=== PATIENT | male | born 1940 | race Caucasian/White ===

== ENCOUNTER → 2024-01-31 10:00 | Outpatient (BNVA) | payer MEDICARE, OTHER, SELFPAY | PROVIDERS: PCP Physician Assistant; Visit Provider Internal Medicine Rheumatology | DX: M31.6 Other giant cell arteritis (principal); Z86.12 Personal history of poliomyelitis; Z79.899 Other long term (current) drug therapy | CPT/HCPCS: 36415; 85651; 86140; 99204 ==

== ENCOUNTER → 2024-08-13 10:25 | Outpatient (BNVA) | payer MEDICARE, OTHER, SELFPAY | PROVIDERS: PCP Physician Assistant; Visit Provider Internal Medicine Rheumatology | DX: M31.6 Other giant cell arteritis (principal); Z79.899 Other long term (current) drug therapy; M81.0 Age-related osteoporosis without current pathological fracture; Z86.12 Personal history of poliomyelitis | CPT/HCPCS: 99214 ==

== ENCOUNTER 2024-08-31 14:10 | Outpatient (CLI) | payer MEDICARE, OTHER, SELFPAY ==
--- NOTE | 2024-08-31 14:30 | XR_ITS ---
WS: [id number] DEXA (DUAL ENERGY X-RAY ABSORPTIOMETRY) Bone mineral density was performed using a [employer] machine. HISTORY: M81.0 - Age-related osteoporosis without current patholog... COMPARISON: None available. Lumbar spine BMD (L1-L4): 1.131 g/cm2 T score: -0.7 Z score: 0.1 Total hip BMD: Left: 0.916 g/cm2. T score: -1.3 Z score: 0.0 Right: 0.884 g/cm2. T score: -1.5 Z score: -0.2 10 year probability of a major osteoporotic fracture is 13.3%. XR/XR DEXA axial skeleton* 16740 IMPRESSION: OSTEOPENIA.
== END 2024-08-31 14:11 | disposition home or self-care (01) ==
PROVIDERS: PCP Physician Assistant; Visit Provider Internal Medicine Rheumatology
DX: M81.0 Age-related osteoporosis without current pathological fracture (principal); M85.80 Other specified disorders of bone density and structure, unspecified site
CPT/HCPCS: 77080

== ENCOUNTER 2024-09-03 10:50 | Oncology outpatient (recurring) (ONCR) | payer MEDICARE, OTHER, SELFPAY ==
[2024-09-03 11:42] LABS: Basophils % 0.3 %; Eosinophils # 0.1 10^3/uL (0.0-0.8); Eosinophils % 1.5 %; Hematocrit 39.9 % (37-53); Lymphocytes # 1.7 10^3/uL (0.8-4.8); Lymphocytes % 23.3 %; Mean Corpuscular HGB Conc 33.6 g/dL (30-55); Mean Corpuscular Hemoglobin 32.1 pg (27-33); Mean Corpuscular Volume 95.7 fl (82-101); Monocytes # 0.6 10^3/uL (0.2-0.9); Monocytes % 7.4 %; Neutrophils # 5.01 10^3/uL (1.8-7.7); Neutrophils % 67.2 %; Nucleated Red Blood Cells % 0 %; Platelet Count 233 10^3/cmm (157-399); Red Blood Count 4.17 10^6/uL (3.85-5.65); Red Cell Distribution Width 12.8 % (12.1-15.1); White Blood Count 7.44 10^3/uL (3.29-11.43)
[2024-09-03 11:45] LABS: Erythrocyte Sedimentation Rate 5 mm/hr (0-10)
[2024-09-03 12:00] LABS: Alanine Aminotransferase 17 U/L (0-41); Albumin Level 3.9 g/dL (3.5-5.2); Alkaline Phosphatase 49 U/L (40-130); Anion Gap 12.7 (5-19); Aspartate Amino Transferase 19 U/L (0-40); Blood Urea Nitrogen 19 mg/dL (8-23); Calcium 9.3 mg/dL (8.5-10.5); Carbon Dioxide 29 mmol/L (22-29); Chloride 103 mmol/L (98-107); Creatinine Clr Calc Pharmacy 56.4775; Globulin 2.6 g/dL (1.3-4.6); Glucose 84 mg/dL (65-115); Osmolality Calculated 293 mOsm/kg (285-295); Potassium 3.7 mmol/L (3.5-5.1); Sodium 141 mmol/L (136-145); Total Bilirubin 0.3 mg/dL (0.15-1.2); Total Protein 6.5 g/dL (6.6-8.7)
[2024-09-03 12:28] LABS: Creatinine Clr Calc Pharmacy 56.4775
[2024-09-03 12:44] LABS: 25 Hydroxy Vitamin D 34 ng/mL (30-100)
[2024-09-04 07:06] LABS: PROTEIN, TOTAL 6.4 g/dL (6.1-8.1)
[2024-09-04 19:24] LABS: ABNORMAL PROTEIN BAND 1 0.2 g/dL (NONE DETECTED); ALBUMIN 3.7 g/dL (3.8-4.8); ALPHA 1 GLOBULIN 0.3 g/dL (0.2-0.3); ALPHA 2 GLOBULIN 0.7 g/dL (0.5-0.9); BETA 1 GLOBULIN 0.4 g/dL (0.4-0.6); BETA 2 GLOBULIN 0.4 g/dL (0.2-0.5)
[2024-09-07 01:44] LABS: Kappa Free Light Chains Urine 19.35 mg/L (<=32.90)
== END 2024-09-21 23:59 | disposition home or self-care (01) ==
PROVIDERS: Internal Medicine Rheumatology; PCP Physician Assistant; Visit Provider Internal Medicine Medical Oncology
DX: M31.6 Other giant cell arteritis (principal); Z86.12 Personal history of poliomyelitis; D47.2 Monoclonal gammopathy; M81.0 Age-related osteoporosis without current pathological fracture; Z79.899 Other long term (current) drug therapy
CPT/HCPCS: 36415; 80053; 82248; 82306; 82565; 83883; 84155; 84156; 84165; 85025; 85651; 86140; 86335; 99204

== ENCOUNTER → 2025-02-04 10:56 | Outpatient (BNVA) | payer MEDICARE, OTHER, SELFPAY | PROVIDERS: PCP Physician Assistant; Visit Provider Internal Medicine Rheumatology | DX: Z79.899 Other long term (current) drug therapy (principal); M81.0 Age-related osteoporosis without current pathological fracture; Z86.12 Personal history of poliomyelitis; M31.6 Other giant cell arteritis | CPT/HCPCS: 36415; 80076; 82306; 82565; 85651; 86140; 86480; 99214 ==

== ENCOUNTER 2025-03-04 10:48 | Oncology outpatient (recurring) (ONCR) | payer MEDICARE, OTHER, SELFPAY ==
[2025-03-04 11:23] LABS: Hematocrit 38.7 % (37-53); Hemoglobin 13.30 g/dL (11.27-16.99); Mean Corpuscular HGB Conc 34.4 g/dL (30-55); Mean Corpuscular Hemoglobin 33.0 pg (27-33); Mean Corpuscular Volume 96.0 fl (82-101); Nucleated Red Blood Cells % 0 %; Platelet Count 207 10^3/cmm (157-399); Red Blood Count 4.03 10^6/uL (3.85-5.65); White Blood Count 6.85 10^3/uL (3.29-11.43)
[2025-03-04 11:42] LABS: Alanine Aminotransferase 13 U/L (0-41); Albumin Level 3.6 g/dL (3.5-5.2); Alkaline Phosphatase 47 U/L (40-130); Anion Gap 12.8 (5-19); Aspartate Amino Transferase 16 U/L (0-40); Blood Urea Nitrogen 20 mg/dL (8-23); Calcium 9.1 mg/dL (8.5-10.5); Carbon Dioxide 27 mmol/L (22-29); Chloride 106 mmol/L (98-107); Creatinine Clr Calc Pharmacy 56.3337; Globulin 2.8 g/dL (1.3-4.6); Glucose 103 mg/dL (65-115); Osmolality Calculated 297 mOsm/kg (285-295); Potassium 3.8 mmol/L (3.5-5.1); Sodium 142 mmol/L (136-145); Total Protein 6.4 g/dL (6.6-8.7)
[2025-03-05 06:58] LABS: PROTEIN, TOTAL 6.3 g/dL (6.1-8.1)
[2025-03-06 11:09] LABS: KAPPA LIGHT CHAIN, FREE, SERUM 19.4 mg/L (3.3-19.4); KAPPA/LAMBDA LIGHT CHAINS FREE 0.97 (0.26-1.65); LAMBDA LIGHT CHAIN, FREE, SERU 19.9 mg/L (5.7-26.3)
[2025-03-07 10:44] LABS: ALPHA 1 GLOBULIN 0.3 g/dL (0.2-0.3); ALPHA 2 GLOBULIN 0.7 g/dL (0.5-0.9); BETA 1 GLOBULIN 0.4 g/dL (0.4-0.6); BETA 2 GLOBULIN 0.4 g/dL (0.2-0.5)
== END 2025-03-24 23:59 | disposition home or self-care (01) ==
PROVIDERS: PCP Physician Assistant; Visit Provider Internal Medicine Medical Oncology
DX: D47.2 Monoclonal gammopathy (principal); M81.0 Age-related osteoporosis without current pathological fracture
CPT/HCPCS: 36415; 80053; 83883; 84155; 84165; 85025; 99213

== ENCOUNTER 2025-05-12 13:49 | Emergency (ER) | payer MEDICARE, OTHER, SELFPAY ==
--- OUTSIDE RECORDS SUMMARY | 2025-05-12 13:52 | XMS_ITS | Encounter Summary ---
Author Organization [facility] Address [address] [place] [address] Care Team Providers Care Medical Coder Name Role Phone Unavailable Primary Care Provider Unavailabl e Encounter Details Date Type Department Care Team (Latest Contact Info) Description 05/12/1998 Outpatient Historical [facility] Gen Spec Surg [place] 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
--- OUTSIDE RECORDS SUMMARY | 2025-05-12 13:52 | XMS_ITS | Encounter Summary ---
Author Organization [facility] Address [address] [place] [address] Care Team Providers Care Asset Card Clerk Name Role Phone Unavailable Primary Care Provider Unavailabl e Encounter Details Date Type Department Care Team (Latest Contact Info) Description 08/13/1999 Outpatient Historical [facility] Internal Medicine[place] [address] [place] [address] Vinh Gutierrez MD NO ADDRESS ON FILE Other and unspecified hyperlipidemia (Primary Dx); Osteoarthrosis, unspecified whether generalized or localized, hand; Encounter for long-term (current) use of other medications; Routine medical exam Social History Tobacco Use Types Packs/Day Years Used Date Smoking Tobacco: Never Assessed Sex and Gender Information Value Date Recorded Sex Assigned at Not on file 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
--- OUTSIDE RECORDS SUMMARY | 2025-05-12 13:52 | XMS_ITS | Encounter Summary ---
Author Organization [facility] Address [address] [place] [address] Care Team Providers Care Trimmer Sawyer Name Role Phone Unavailable Primary Care Provider Unavailabl e Encounter Details Date Type Department Care Team (Latest Contact Info) Description 07/31/1998 Outpatient Historical [facility] Vinh Mi MD NO ADDRESS ON FILE Other and unspecified hyperlipidemia (Primary Dx); Encounter for long-term (current) use of other medications; Screening for unspecified malignant neoplasm Social History Tobacco Use Types Packs/Day Years Used Date Smoking Tobacco: Never Assessed Sex and Gender Information Value Date Recorded Sex Assigned at Not on file 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
--- OUTSIDE RECORDS SUMMARY | 2025-05-12 13:52 | XMS_ITS | Encounter Summary ---
Author Organization 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
--- OUTSIDE RECORDS SUMMARY | 2025-05-12 13:52 | XMS_ITS | Encounter Summary ---
Author Organization [facility] Address [address] [place] [address] Care Team Providers Care Chip Applying Machine Tender Name Role Phone Unavailable Primary Care Provider Unavailabl e Encounter Details Date Type Department Care Team (Latest Contact Info) Description 08/12/1998 Outpatient Historical [facility] Gen Spec Surg [place] 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
--- OUTSIDE RECORDS SUMMARY | 2025-05-12 13:53 | XMS_ITS | Encounter Summary ---
Author Organization [facility] Address [address] [place] [address] Care Team Providers Care Associate Justice Name Role Phone Unavailable Primary Care Provider Unavailabl e Encounter Details Date Type Department Care Team (Latest Contact Info) Description 08/31/2001 Outpatient Historical [facility] Internal Medicine[place] [address] [place] [address] Vinh Gutierrez MD NO ADDRESS ON FILE Routine medical exam (Primary Dx); OSTEOARTHROS NOS-SHLDER; HYPERLIPIDEMIA NEC/NOS; AFTERCARE DETENTION USE MEDICATN Social History Tobacco Use Types Packs/Day Years Used Date Smoking Tobacco: Never Assessed Sex and Gender Information Value Date Recorded Sex Assigned at Not on file 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
--- OUTSIDE RECORDS SUMMARY | 2025-05-12 13:53 | XMS_ITS | Encounter Summary ---
Author Organization [facility] Address [address] [place] [address] Care Team Providers Care Sales Recruiter Name Role Phone Unavailable Primary Care Provider Unavailabl e Encounter Details Date Type Department Care Team (Latest Contact Info) Description 06/21/2001 Outpatient Historical [facility] Internal Medicine[place] [address] [place] [address] Vinh Gutierrez MD NO ADDRESS ON FILE VACCINE FOR INFLUENZA (Primary Dx) Social History Tobacco Use Types Packs/Day Years Used Date Smoking Tobacco: Never Assessed Sex and Gender Information Value Date Recorded Sex Assigned at Not on file 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
--- OUTSIDE RECORDS SUMMARY | 2025-05-12 13:53 | XMS_ITS | Encounter Summary ---
Author Organization [facility] Address [address] [place] [address] Care Team Providers Care Target Developer Name Role Phone Unavailable Primary Care Provider Unavailabl e Encounter Details Date Type Department Care Team (Latest Contact Info) Description 09/05/2002 Outpatient Historical [facility] Internal Medicine[place] [address] [place] [address] Vinh Gutierrez MD NO ADDRESS ON FILE HYPERLIPIDEMIA NEC/NOS (Primary Dx); ARTHROPATHY NOS-UNSPEC; AFTERCARE SENIOR LIVING USE MEDICATN Social History Tobacco Use Types Packs/Day Years Used Date Smoking Tobacco: Never Assessed Sex and Gender Information Value Date Recorded Sex Assigned at Not on file 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
--- OUTSIDE RECORDS SUMMARY | 2025-05-12 13:53 | XMS_ITS | Encounter Summary ---
Author Organization [facility] Address [address] [place] [address] Care Team Providers Care Custom Frame Assembler Name Role Phone Unavailable Primary Care Provider Unavailabl e Encounter Details Date Type Department Care Team (Latest Contact Info) Description 10/09/2002 Outpatient Historical [facility] [address] 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
--- OUTSIDE RECORDS SUMMARY | 2025-05-12 13:53 | XMS_ITS | Encounter Summary ---
Author Organization [facility] Address [address] [place] [address] Care Team Providers Care Pvc Monitor Name Role Phone Unavailable Primary Care Provider Unavailabl e Encounter Details Date Type Department Care Team (Latest Contact Info) Description 04/28/2001 Outpatient Historical [facility] Internal Medicine[place] [address] [place] [address] Vinh Gutierrez MD NO ADDRESS ON FILE Other and unspecified hyperlipidemia (Primary Dx); Special screening for malignant neoplasm of prostate Social History Tobacco Use Types Packs/Day Years Used Date Smoking Tobacco: Never Assessed Sex and Gender Information Value Date Recorded Sex Assigned at Not on file 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
--- OUTSIDE RECORDS SUMMARY | 2025-05-12 13:53 | XMS_ITS | Encounter Summary ---
Author Organization [facility] Address [address] [place] [address] Care Team Providers Care Administrative Support Manager Name Role Phone Unavailable Primary Care Provider Unavailabl e Encounter Details Date Type Department Care Team (Latest Contact Info) Description 10/09/2002 Outpatient Historical [facility] Gen Spec Surg [place] 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
--- OUTSIDE RECORDS SUMMARY | 2025-05-12 13:53 | XMS_ITS | Encounter Summary ---
Author Organization [facility] Address [address] [place] [address] Care Team Providers Care Marble Mechanic Helper Name Role Phone Unavailable Primary Care Provider Unavailabl e Encounter Details Date Type Department Care Team (Latest Contact Info) Description 11/25/1998 Outpatient Historical [facility] Internal Medicine-[place] [address] [place] [address] Vinh Gutierrez MD NO ADDRESS ON FILE Allergic rhinitis, cause unspecified (Primary Dx); Prostatitis, unspecified Social History Tobacco Use Types Packs/Day Years Used Date Smoking Tobacco: Never Assessed Sex and Gender Information Value Date Recorded Sex Assigned at Not on file 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
--- OUTSIDE RECORDS SUMMARY | 2025-05-12 13:53 | XMS_ITS | Encounter Summary ---
Author Organization [facility] Address [address] [place] [address] Care Team Providers Care Mold Repairer Name Role Phone Unavailable Primary Care Provider Unavailabl e Encounter Details Date Type Department Care Team (Latest Contact Info) Description 11/03/2001 Outpatient Historical [facility] Internal Medicine-[place] [address] [place] [address] Vinh Gutierrez MD NO ADDRESS ON FILE ACUTE URI NOS (Primary Dx); ACUTE BRONCHITIS Social History Tobacco Use Types Packs/Day Years Used Date Smoking Tobacco: Never Assessed Sex and Gender Information Value Date Recorded Sex Assigned at Not on file 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
--- OUTSIDE RECORDS SUMMARY | 2025-05-12 13:53 | XMS_ITS | Encounter Summary ---
Author Organization [facility] Address [address] [place] [address] Care Team Providers Care Composition Tile Layer Name Role Phone Unavailable Primary Care Provider Unavailabl e Encounter Details Date Type Department Care Team (Latest Contact Info) Description 05/18/1999 Outpatient Historical [facility] Internal Medicine[place] [address] [place] [address] Vinh Gutierrez MD NO ADDRESS ON FILE Need vaccination-viral disease (Primary Dx) Social History Tobacco Use Types Packs/Day Years Used Date Smoking Tobacco: Never Assessed Sex and Gender Information Value Date Recorded Sex Assigned at Not on file 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
--- OUTSIDE RECORDS SUMMARY | 2025-05-12 13:53 | XMS_ITS | Encounter Summary ---
Author Organization [facility] Address [address] [place] [address] Care Team Providers Care Metal Checker Name Role Phone Unavailable Primary Care Provider Unavailabl e Encounter Details Date Type Department Care Team (Latest Contact Info) Description 08/18/2000 Outpatient Historical [facility] Internal Medicine[place] [address] [place] [address] Vinh Gutierrez MD NO ADDRESS ON FILE Other and unspecified hyperlipidemia (Primary Dx); Osteoarthrosis, unspecified whether generalized or localized, shoulder region; Urinary tract infection, site not specified; Routine medical exam; Encounter for long-term (current) use of other medications; Special screening for malignant neoplasm of prostate Social History Tobacco Use Types Packs/Day Years Used Date Smoking Tobacco: Never Assessed Sex and Gender Information Value Date Recorded Sex Assigned at Not on file 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
--- OUTSIDE RECORDS SUMMARY | 2025-05-12 13:53 | XMS_ITS | Encounter Summary ---
Author Organization [facility] Address [address] [place] [address] Care Team Providers Care Crosscutter Rolled Glass Name Role Phone Unavailable Primary Care Provider Unavailabl e Encounter Details Date Type Department Care Team (Latest Contact Info) Description 02/26/1998 Outpatient Historical [facility] Vinh Mi MD NO ADDRESS ON FILE Urinary tract infection, site not specified (Primary Dx); Unspecified hemorrhoids without mention of complication Social History Tobacco Use Types Packs/Day Years Used Date Smoking Tobacco: Never Assessed Sex and Gender Information Value Date Recorded Sex Assigned at Not on file 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
--- OUTSIDE RECORDS SUMMARY | 2025-05-12 13:53 | XMS_ITS | Encounter Summary ---
Author Organization [facility] Address [address] [place] [address] Care Team Providers Care Curriculum Facilitator Name Role Phone Unavailable Primary Care Provider Unavailabl e Encounter Details Date Type Department Care Team (Latest Contact Info) Description 09/06/2003 Outpatient Historical [facility] Internal Medicine-[place] [address] [place] [address] Vinh Gutierrez MD NO ADDRESS ON FILE Routine medical exam (Primary Dx); SCREENING MAL NEOP-RECTUM Social History Tobacco Use Types Packs/Day Years Used Date Smoking Tobacco: Never Assessed Sex and Gender Information Value Date Recorded Sex Assigned at Not on file 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
--- OUTSIDE RECORDS SUMMARY | 2025-05-12 13:53 | XMS_ITS | Data Portability ---
Author Organization [facility] Address [address] [address] Assessment No assessment recorded. Plan of Treatment Reminders Order Date Submit Date Provider Last Modified By Organization Details Last Modified Time Details Appointments None recorded. Lab None recorded. Referral rheumatolog ist referral 2022 023 [email or web address] Emmanuel Ivan MD, [address] [place], [address], 4 12:25:15 Procedures None recorded. Surgeries None recorded. Imaging None recorded. Medication Orders metoprolol tartrate 25 mg tablet 2024 025 [facility], [address], [place], [address], 5 15:16:18 lisinopril 10 mg tablet 2024 025 [facility] 15, [address], [place], [address], 5 15:16:21 ezetimibe 10 mg tablet 2024 025 [facility] [address], [address], [place], [address], 5 15:16:21 Patient TargetsNo targets recorded. Patient InstructionsNo instructions recorded. 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 Referral for Temporal arteritis Referring Physician: Amy Kessler, Family Medicine, Encounter Date: 06/30/2023 Results Created Date Observation Date Name Description Value Unit Range Abnormal Flag Note LastModifiedBy Organization Detail LastModifiedTime 09/23/19 24 09/23/2023 CBC WBC 6.5 x10 4.5-10 .5 Not Available [facility] [address] [facility], [place], [address], 09/23/2023 10:57:17 09/23/19 24 09/23/2023 CBC RBC 4.15 x10 4.30-5 .90 low Not Available [facility] [address] [facility], [place], [address], 09/23/2023 10:57:17 09/23/19 24 09/23/2023 CBC HGB 14.0 g/dL 13.5-1 8.0 Not Available [facility] [address] [facility] Daya [facility], [place], [address], 09/23/2023 10:57:17 09/23/19 24 09/23/2023 CBC HCT 40.0 % 35.0-6 0.0 Not Available [facility] [address] [place] [address] [facility], [place], [address], 09/23/2023 10:57:17 09/23/19 24 09/23/2023 CBC MCV 96.3 fL 80.0-9 9.9 Not Available [facility] [address] [facility] Daya [facility], [place], [address], 09/23/2023 10:57:17 09/23/19 24 09/23/2023 CBC MCH 33.6 pg 27.0-3 2.0 high Not Available [facility] [address] [facility]leton [facility], [place], [address], 09/23/2023 10:57:17 09/23/19 24 09/23/2023 CBC MCHC 34.9 g/dL 32.0-3 6.0 Not Available [facility] [address] [facility], [place], [address], 09/23/2023 10:57:17 09/23/19 24 09/23/2023 CBC RDW 13.8 % 11.5-1 4.5 Not Available [facility] [address] [facility] 1, [place], [address], 09/23/2023 10:57:17 09/23/19 24 09/23/2023 CBC plt 201.8 x10 150.0- 451.0 Not Available [facility] [address] [facility] 1, [place], [address], 09/23/2023 10:57:17 09/23/19 24 09/23/2023 CBC lymphocytes % 39.4 % 20.0-5 0.0 Not Available [facility] [address] [facility], [place], [address], 09/23/2023 10:57:17 09/23/19 24 09/23/2023 CBC granulcytes % 50.8 % 30.0-7 0.0 Not Available [facility] [address] [facility] 1, [place], [address], 09/23/2023 10:57:17 09/23/19 24 09/23/2023 CBC monocytes % 6.8 % 2.0-10 .0 Not Available [facility] [address] [facility] 1, [place], [address], 09/23/2023 10:57:17 09/23/19 24 09/23/2023 CBC granulcytes# 3.3 x10 Not Mery ilable [facility] [address] [address], [place], [address], 09/23/2023 10:57:17 09/23/19 24 09/23/2023 CBC lymphocytes # 2.6 x10 Not Available [facility] [address] [place] [facility], [place], [address], 09/23/2023 10:57:17 09/23/19 24 09/23/2023 CBC monocytes # 0.4 x10 Not [facility] [address] [facility] [address], [place], [address], 09/23/2023 10:57:17 09/23/19 24 09/23/2023 CMP (MALE ) glucose 94.0 mg/dL 60.0-9 9.0 Not Available [facility] [address] [facility] 1, [place], [address], 09/23/2023 11:15:43 09/23/19 24 09/23/2023 CMP (MALE ) BUN (blood urea nitrogen) 21.0 mg/dL 10.0-2 6.0 Not Available [facility] [address] [facility] 1, [place], [address], 09/23/2023 11:15:43 09/23/19 24 09/23/2023 CMP (MALE ) creatinine (serum) 1.0 mg/dL 0.4-1. 5 Not Available [facility] [address] [address], [place], [address], 09/23/2023 11:15:43 09/23/19 24 09/23/2023 CMP (MALE ) BUN/creatini ne ratio 22.11 ratio Not Available [facility] [address] [facility] 1, [place], [address], 09/23/2023 11:15:43 09/23/19 24 09/23/2023 CMP (MALE ) eGFR calculated 80.7 Not Available [facility] [address] [facility] 1, [place], [address], 09/23/2023 11:15:43 09/23/19 24 09/23/2023 CMP (MALE ) total protein 7.1 g/dL 6.0-8. 5 Not Available [facility] [address] [facility], [place], [address], 09/23/2023 11:15:43 09/23/19 24 09/23/2023 CMP (MALE ) total bilirubin 0.6 mg/dL 0.2-1. 3 Not Available [facility] [address] [place] [facility], [place], [address], 09/23/2023 11:15:43 09/23/19 24 09/23/2023 CMP (MALE ) albumin 4.1 g/dL 3.5-5. 5 Not Available [facility] [address] [facility] 1, [place], [address], 09/23/2023 11:15:43 09/23/19 24 09/23/2023 CMP (MALE ) globulin 3.0 calc Not Available [facility] [address] [facility] 1, [place], [address], 09/23/2023 11:15:43 09/23/19 24 09/23/2023 CMP (MALE ) AST (SGOT) 34.0 U/L 0.0-46 .0 Not Available [facility] [address] [facility] 1, [place], [address], 09/23/2023 11:15:43 09/23/19 24 09/23/2023 CMP (MALE ) altv (SGPT) 23.0 U/L 13.0-6 9.0 normal Not Available [facility] [address] [facility], [place], [address], 09/23/2023 11:15:43 09/23/19 24 09/23/2023 CMP (MALE ) A/G ratio 1.4 ratio Not Available [facility] [address] [facility] 1, [place], [address], 09/23/2023 11:15:43 09/23/19 24 09/23/2023 CMP (MALE ) ALP phos 49.0 U/L 30.0-1 40.0 normal Not Available [facility] [address] [facility] 1, [place], [address], 09/23/2023 11:15:43 09/23/19 24 09/23/2023 CMP (MALE ) calcium 9.4 mg/dL 8.4-10 .5 Not Available [facility] [address] [facility] 1, [place], [address], 09/23/2023 11:15:43 09/23/19 24 09/23/2023 CMP (MALE ) sodium 142.0 mmol/ L 136.0- 145.0 Not Available [facility] [address] [facility] 1, [place], [address], 09/23/2023 11:15:43 09/23/19 24 09/23/2023 CMP (MALE ) potassium 3.8 mmol/ L 3.5-5. 1 Not Available [facility] [address] [facility] 1, [place], [address], 09/23/2023 11:15:43 09/23/19 24 09/23/2023 CMP (MALE ) chloride 107.0 mmol/ L 98.0-1 10.0 normal Not Available [facility] [address] [facility] 1, [place], [address], 09/23/2023 11:15:43 09/23/19 24 09/23/2023 CMP (MALE ) C02 31.0 mmol/ L 22.0-3 1.0 Not Available [facility] [address] [facility] 1, [place], [address], 09/23/2023 11:15:43 09/23/19 24 09/23/2023 CMP (MALE ) anion gap 4.0 calc Not Available [facility] [address] [facility] 1, [place], [address], 09/23/2023 11:15:43 09/23/19 24 09/23/2023 CMP (MALE ) osmolality 295.7 calc Not Available [facility] [address] [facility] 1, [place], [address], 09/23/2023 11:15:43 09/23/19 24 09/23/2023 LIPID PROFI LE (MALE ) cholesterol 177.0 mg/dL 0.0-20 0.0 Not Available [facility] [address] [facility] 1, [place], [address], 09/23/2023 11:16:56 09/23/19 24 09/23/2023 LIPID PROFI LE (MALE ) trig 102.0 mg/dL 0.0-15 0.0 Not Available [facility] [address] [facility] 1, [place], [address], 09/23/2023 11:16:56 09/23/19 24 09/23/2023 LIPID PROFI LE (MALE ) HDL - direct 53.0 mg/dL >40.0 Not Available [facility] [address] [facility] 1, [place], [address], 09/23/2023 11:16:56 09/23/19 24 09/23/2023 LIPID PROFI LE (MALE ) VLDL - direct 20.4 mg/dL Not Available [facility] [address] [facility] 1, [place], [address], 09/23/2023 11:16:56 09/23/19 24 09/23/2023 LIPID PROFI LE (MALE ) LDL - direct 103.6 mg/dL 0.0-13 0.0 Not Available [facility] [address], [address], 09/23/2023 11:16:56 09/23/19 24 09/23/2023 TSH, serum or plasm a TSH 3.40 uIU/m L 0.49-3 .82 normal Not Available [facility] ([facility]) [address] [place], [address], 08/23/2023 10:18:35 Result Notes None recorded. Problems Name Problem SNOMED Code Status Onset Date Resolution Date Notes Provider Name and Address Organization Details Recorded Time Acute sinusiti s 75031262 Completed 201807/28/2018 ACUTE BACTERIA L SINUSITI S - Status is Inactive ; Impressi on: Drink plenty of water, get lots of rest. Take all antibiot ics. Call or return if worsenin g.; Recorded 07/28/19 19 10:26AM by Keyla Aguilar CMT, Annotati on/Addfracisco dum; Promoted ; acuity set as *; Not Available [facility] 3 03:07:34 Fracture , closed Completed 201809/24/2024 Fracture , Closed; elbow; 09/26/19 19 2:10PM by Lauren Berry LPN, Office Visit; Promoted ; acuity set as *; Removal Reason: resolved IVORY quezada [facility], [facility]issaLBal 5 20:12:19 [facility] hyperten luis miguel 28688041 Active 2023 IVORY quezada [facility], Mirela.LBal 5 20:12:09 Hyperlip idemia 59045676 Active 2023 IVORY quezada [facility], LarissaLFredoCFredo 5 20:12:21 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 Procedures Surgical History Date Name Laterality Status Provider Name and Address Organization Details Recorded Time 10/01/19 23 bone density scan completed IVORYLISA BLOUNT [facility], LarissaLFredoCFredo 09/29/2023 11:42:15 10/22/19 21 colonoscopy completed [facility] 06/06/2023 17:29:53 09/23/19 10 Prostatectomy completed AMY KESSLER PA-C [address] [place] [address], [address], [facility], LarissaLFredoCFredo 09/29/2023 12:19:17 Imaging Results None recorded. Procedure Notes None recorded. Medical Equipment None Reported. Allergies Allergen ID Allergen Name Allergen Category Reaction Reaction Severity Criticality Documentation Date Start Date Code Code System Note Provider Name and Address Organization Details Recorded Time 3163 Product containin g penicilli n (product) medicatio n Not available Not available Not available 12/08/2022 43563 8001 SNOMED MCKALE MCKAYLA [facility], L.L.CFredo 3 11:26:06 12191 Cipro medicatio n Not available Not available Not available 02/19/2023 53181 3 RxNorm Comme nt: Recor ded 09/25 2:10P M by Damir mooney LPN, Offic e Visit ; Promo mary; Signi vic ce: *; Reaso n: Drug aller gy; ; Not Available [facility] 3 02:25:20 33147 Bactrim medicatio n Not available Not available Not available 02/19/2023 01913 9 RxNorm Comme nt: Recor ded 09/25 2:10P M by Damir mooney LPN, Offic e Visit ; Promo mary; Signi vic ce: *; Reaso n: Drug aller gy; ; [facility] 3 11:41:50 26891 penicilli n V potassium medicatio n Not available Not available Not available 02/19/2023 21187 5 RxNorm Comme nt: Recor ded 09/25 2:10P M by Damir mooney LPN, Offic e Visit ; Promo mary; Signi vic ce: *; Reaso n: Drug aller gy; ; Not Available [facility] 3 02:25:21 02633 morphine sulfate medicatio n other Not available Not available 02/19/2023 89835 RxNorm React ion: _coul dn't wake up_ -- had to give him a rever mariam shot to wake him up; Comme nt: Recor ded 09/25 2:10P M by Damir mooney LPN, Offic e Visit ; Promo mary; Signi vic ce: *; Reaso n: Drug aller gy; ; Not Available [facility] 3 02:25:21 43153 codeine medicatio n Not available Not available Not available 06/30/2023 2670 RxNorm [facility] 3 11:52:50 Medications Name Sig Start Date Stop Date Status Note LastModified by Organization Details LastModified Time prednison e 10 mg tablet TAKE 1 TABLET BY MOUTH ONCE DAILY active Not Available Not Available No t Available azithromy amanda 250 mg tablet TAKE 2 TABLETS (500 MG) BY ORAL ROUTE ONCE DAILY FOR 1 DAY THEN 1 TABLET (250 MG) BY ORAL ROUTE ONCE DAILY FOR 4 DAYS 06/01 completed Not Available Not Available Not Available valacyclo vir 1 gram tablet TAKE 1 TABLET BY MOUTH ONCE DAILY 06/30 completed Not Available Not Available Not Available ketorolac 0.5 % eye drops INSTILL 1 DROP INTO LEFT EYE ONCE DAILY 06/30 completed Not Available Not Available Not Available terbinafi ne HCl 250 mg tablet TAKE 1 TABLET BY MOUTH ONCE DAILY FOR 14 DAYS THEN REPEAT NEEDED active Not Available Not Available No t Available prednisol one acetate 1 % eye drops,serene pension INSTILL 1 DROP INTO LEFT EYE THREE TIMES DAILY 06/30 completed Not Available Not Available Not Available lisinopri l 10 mg tablet TAKE 1 TABLET BY MOUTH ONCE DAILY active Not Available Not Available No t Available lisinopri l 5 mg tablet TAKE 1 TABLET BY MOUTH ONCE DAILY 06/30 completed Not Available Not Available Not Available ketoconaz ole 2 % topical cream APPLY TOPICALL Y TO RASH TWICE DAILY NEEDED active Not Available Not Available No t Available doxycycli ne hyclate 100 mg tablet 06/01 completed 0; Recorded 09/26/19 19 2:22PM by Lauren Berry LPN, Office Visit; Not Available Not Available Not Available Ventolin HFA 90 mcg/actua tion aerosol inhaler INHALE 1 PUFF BY MOUTH EVERY 4 HOURS NEEDED FOR COUGH AND FOR WHEEZING active Not Available Not Available No t Available ezetimibe 10 mg tablet TAKE 1 TABLET BY MOUTH ONCE DAILY active Not Available Not Available No t Available metoprolo l tartrate 25 mg tablet TAKE 1 TABLET BY MOUTH ONCE DAILY active Not Available Not Available No t Available cod liver oil 06/30 completed 0; Recorded 09/26/19 19 2:10PM by Lauren Berry LPN, Office Visit; Not Available Not Available Not Available Aspirin EC daily 06/01 completed 0; Recorded 09/26/19 19 2:10PM by Lauren Berry LPN, Office Visit; Not Available Not Available Not Available Coricidin 06/30 completed Recorded 09/26/19 19 2:41PM by SEBASTIAN Rob[facility], Office Visit; Refill Quantity : 0; Not Available Not Available Not Available lisinopri l 06/30 completed Not Available Not Available Not Available metoprolo l succinate 06/01 completed Not Available Not Available Not Available fiber 06/30 completed 0; Recorded 09/26/19 2:10PM by Lauren Berry LPN, Office Visit; Not Available Not Available Not Available PreserVis ion AREDS 2 qd active Not Available Not Available No t Available red yeast rice 06/30 completed 0; Recorded 09/26/19 19 2:10PM by Lauren Berry LPN, Office Visit; Not Available Not Available Not Available Multi Vitamin daily 10/01 completed 0; Recorded 09/26/19 2:10PM by Lauren Berry LPN, Office Visit; Not Available Not Available Not Available aspirin 325 mg capsule Take by oral route. active Not Available Not Available No t Available Vitals Date Recorded Body height Body mass index (BMI) Body weight Oxygen saturation Oxygen saturation in Arterial blood by Pulse oximetry Heart rate Respiratory rate Body temperature Systolic And Diastolic Provider Name and Address Organization Details Last Updated DateTime 4 172.72 cm 25.7 kg/m2 97595.1 1 g 97 % 97 % 78 /min 20 /min 98.7 [degF] 118/70 mm[Hg] [facility] 4 11:20:24 Date Recorded Body height Body mass index (BMI) Body weight Oxygen saturation Oxygen saturation in Arterial blood by Pulse oximetry Heart rate Respiratory rate Body temperature Systolic And Diastolic Provider Name and Address Organization Details Last Updated DateTime 5 172.72 cm 25.4 kg/m2 67411.9 3 g 97 % 97 % 72 /min 18 /min 97 [degF] 130/70 mm[Hg] [facility] 5 14:35:19 Date Recorded Body height Body mass index (BMI) Body weight Oxygen saturation Oxygen saturation in Arterial blood by Pulse oximetry Heart rate Respiratory rate Body temperature Systolic And Diastolic Provider Name and Address Organization Details Last Updated DateTime 5 172.72 cm 25.5 kg/m2 21835.5 2 g 97 % 97 % 78 /min 16 /min 98.2 [degF] 144/80 mm[Hg] Dahlia Vazquez [facility], LFredoLBal 5 12:45:14 Date Recorded Body height Body mass index (BMI) Body weight Oxygen saturation Oxygen saturation in Arterial blood by Pulse oximetry Heart rate Respiratory rate Body temperature Systolic And Diastolic Provider Name and Address Organization Details Last Updated DateTime 4 172.72 cm 25 kg/m2 91871.9 5 g 97 % 97 % 76 /min 20 /min 97.8 [degF] 138/80 mm[Hg] IVORY BLOUNT [facility], LFredoLFredoCFredo 4 11:52:31 Date Recorded Body height Body mass index (BMI) Body weight Oxygen saturation Oxygen saturation in Arterial blood by Pulse oximetry Heart rate Respiratory rate Body temperature Systolic And Diastolic Provider Name and Address Organization Details Last Updated DateTime 3 172.72 cm 25.1 kg/m2 30114.7 4 g 97 % 97 % 76 /min 20 /min 98 [degF] 140/80 mm[Hg] IVORY BLOUNT [facility], LFredoLFredoCFredo 3 11:39:46 Social History Question Answer Notes LastModified by Organizat ion Details LastModified Time Tobacco Smoking Status Never Smoker AMY KESSLER PA-C [address] [place], [address], [facility], LFredoLBal 04/09/2024 12:11:59 What Was The Date Of Your Most Recent Tobacco Screening? 04/09/2024 [email or web address] Information not available 04/09/2024 Sex: Unknown Functional Status None recorded. Mental Status None recorded. Family History Nothing Reported. Medical History No medical history recorded. Immunizations Vaccine Type Date Status Note Provider Name and Address Organization Details Recorded Time Tdap 10/05/19 25 completed SEBASTIAN TYSON [address] [place], [address], [facility], LFredoLBal 10/04/2024 14:04:23 zoster, unspecified formulation 01/02/20 11 completed AMY KESSLER PA-C [address] [place], [address], [facility] 06/30/2023 12:06:42 pneumococcal polysaccharide PPV23 10/29/19 05 completed AMY KESSLER PA-C [address] [place] [address], [address], [facility] 06/30/2023 12:06:43 pneumococcal polysaccharide PPV23 05/05/20 11 completed AMY KESSLER PA-C [address] [place] [address], [address], [facility] 06/30/2023 12:06:43 Tdap 02/16/20 13 completed AMY KESSLER PA-C [address] [place] [address], [address], [facility] 06/30/2023 12:06:43 Pneumococcal conjugate PCV 13 10/14/19 16 completed AMY KESSLER PA-C [address] [place] [address], [address], [facility] 06/30/2023 12:06:43 SARS-COV-2 (COVID-19) vaccine, UNSPECIFIED 08/14/19 22 completed AMY KESSLER PA-C [address] [place] [address], [address], [facility] 06/30/2023 12:06:43 SARS-COV-2 (COVID-19) vaccine, UNSPECIFIED 09/30/19 21 completed AMY KESSLER PA-C [address] [place] [address], [address], [facility] 06/30/2023 12:06:43 SARS-COV-2 (COVID-19) vaccine, UNSPECIFIED 08/29/19 21 completed AMY KESSLER PA-C [address] [place], [address], [facility] 06/30/2023 12:06:43 COVID-19, mRNA, LNP-S, PF, 100 mcg/0.5mL dose or 50 mcg/0.25mL dose 08/14/19 22 completed AMY KESSLER PA-C [address] [place], [address], [facility] 06/30/2023 12:06:43 COVID-19, mRNA, LNP-S, PF, 100 mcg/0.5mL dose or 50 mcg/0.25mL dose 08/29/19 21 completed AMY KESSLER PA-C [address] [place], [address], [facility] 06/30/2023 12:06:43 COVID-19, mRNA, LNP-S, PF, 100 mcg/0.5mL dose or 50 mcg/0.25mL dose 09/30/19 21 completed AMY KESSLER PA-C [address] [place], [address], [facility] 06/30/2023 12:06:43 Influenza, split virus, trivalent, PF 04/03/20 24 cancelled patient objection [facility] 04/09/2024 13:56:52 Influenza, split virus, trivalent, preservative 09/26/19 19 completed AMY KESSLER PA-C [address] [place], [address], [facility] 06/30/2023 12:06:43 Past Encounters Encounter ID Performer Location Encounter Start Date Encounter Closed Date Diagnosis/Indication Diagnosis SNOMED-CT Code Diagnosis ICD10 Code Diagnosis IMO Codes Diagnosis Note [id number] YASMINE GREGORIO [facility] ([facility]) [address] [place] [phone] 12/08/2022 11:12:11 12/08/2022 14:30:07 Acute sinusitis 34088873 J01.90 Start Z-pack today. Discussed with patient that he can continue Sudafed at night if he feels like it is helping. Encouraged to continue daily Zyrtec. If no improvemen t in 5 days, return for further evaluation . 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 [id number] AMY KESSLER PA-C [facility] ([facility]) [address] [place] [phone] 09/29/2023 11:11:59 09/29/2023 12:33:06 Essential hypertension 25760063 I10 Hyperlipidemia 68562342 E78.5 CCA form filled out during today's office visit Myelodyspl astic/myelo proliferative disease 720016902 C94.6 sees oncology in [place] Coronary arteriosclerosis 86594292 I25.119 on Billy and BB Temporal arteritis 45233 0008 M31.6 Adult heal th examination 937820575 Z00.00 [id number] AMY KESSLER PA-C [facility] ([facility]) [address] [place] [phone] 04/03/2024 11:19:47 04/09/2024 14:28:12 Administration of influenza vaccine 44633549 Z23 Essential hypertension 81573967 I10 pt bp at goal and his compliant with meds.labs are uptodate. Hyperlipidemia 41122480 E78.5 Polymyalgi a rheumatica 02202040 M35.3 [id number] AMY KESSLER PA-C [facility] ([facility]) [address] [place] [address] 10/02/2024 14:31:56 10/02/2024 15:33:31 Adult health examination 288200033 Z00.00 Myelodyspl astic/myelo proliferative neoplasm, unclassifiable 583134725 C94.6 will get copies of his labs from rheum and hematology . 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 Brenda Nichols [id number] E78.5 Essential hypertension 16985551 I10 [id number] SEBASTIAN TYSON [facility] ([facility]) [address] [place] [address] 10/04/2024 12:40:38 10/04/2024 13:42:26 Administration of tetanus vaccine [id number] Tear of skin [id number] T 14.8XXA Wound care performed with steri strips placed. Instructio ns given for wound care at home including ALEX bid to areas. RTC with any signs/symp toms of infection. History of fall [id number] Z91.81 Health Concerns Section Related Observation LastModified by Organization Detai ls LastModified Time None Recorded Concern Status LastModified by Organization Details LastModified Time None Recorded Advance Directives Directive None Recorded Payers Insurance Date Sequence Insurance Name Policy Number Policy Schmitz Covered Member ID Schmitz Member ID Guarantor Name 04/02/2025 [place] - MEDICARE-DC - PART A - [facility] (MEDICARE) Shaun W Lalo [id number] Shaun W Lalo 04/02/2025 1 [place] Shaun W Lalo [id number] Shaun W Lalo 04/01/2025 2 [employer] Shaun W Lalo [id number] Shaun W Lalo Notes Date Note Type Note Provider Name and Address Organization Details Recorded Time 3 text/html Joint PainReported by PatientHPIFor quality, patient reportssharp,tingling, anddull. For location, patient reportsbilateral neck,bilateral shoulder,bilateral arm,__ __,thoracic spine,lumbar spine, andbilateral knee. For severity, patient reportsno driving impairment. For duration, patient reportspresent for >12 months. For timing, patient reportsconstant. For aggravating factors, patient reportsmovement/positioni ng. Changing PCP from [facility] to be closer to home.Long hx of temporal arteritis. Can't get off 10 mg of prednisone. 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 med management. ASA. myopathy with statin. Saw hemotolgist/oncologist 2021. Dr. Morales start of MDS. some abnormal proteins in blood. AMY KESSLER PA-C [address] [place] [address], [phone], [facility], [place]. 06/30/2023 16:16:19 4 text/html Medicare Annual Wellness VisitReported by PatientSocial/Behavioral HistoryFor fracture risk, patient reportsprevious musculoskeletal injuriesbut reportsno recent explained fracture. For diet and nutrition, patient reportshealthy diet,discussed vitamin and supplement use,discussed portion control,discussed maintaining calcium balance, anddiscussed diet improvement. For physical activity, patient reportsexercises on a regular basis,discussed weightbearing activities, anddiscussed exercise habits.Mental Status:For depression risk, patient reportsnever feels sad, empty, or tearfulandno thoughts of suicide. For orientation, patient reportsno disorientation to dateandno disorientation to place. For concentration and memory, patient reportsno decreased concentrating ability,no memory lapses or loss, anddoes not forget words. For speech/motor difficulties, patient reportsno speech difficulties,no difficulty expressing formulated concepts,no difficulty with fine manipulative tasks,no difficulty writing/copying,no slowed reaction time, anddoes not knock things over when trying to pick them up.Functional AbilityFor vision, patient reportsworse both distance and near(wears glasses). For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
--- OUTSIDE RECORDS SUMMARY | 2025-05-12 13:53 | XMS_ITS | Encounter Summary ---
Author Organization [facility] Address [address] [place] [address] Care Team Providers Care Construction Project Manager Name Role Phone Unavailable Primary Care Provider Unavailabl e Encounter Details Date Type Department Care Team (Latest Contact Info) Description 03/10/1998 Outpatient Historical [facility] & Vinh Mi MD NO ADDRESS ON FILE Unspecified hemorrhoids without mention of complication (Primary Dx); Urinary tract infection, site not specified Social History Tobacco Use Types Packs/Day Years Used Date Smoking Tobacco: Never Assessed Sex and Gender Information Value Date Recorded Sex Assigned at Not on file 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
--- OUTSIDE RECORDS SUMMARY | 2025-05-12 13:53 | XMS_ITS | Encounter Summary ---
Author Organization [facility] Address [address] [place] [address] Care Team Providers Care Make Up Girl Name Role Phone Unavailable Primary Care Provider Unavailabl e Encounter Details Date Type Department Care Team (Latest Contact Info) Description 08/13/1999 Outpatient Historical [facility] [address] [place] [address] Lai Almanza MD [address] [place] [address] Other and unspecified hyperlipidemia (Primary Dx); Routine medical exam; Encounter for long-term (current) use of other medications Social History Tobacco Use Types Packs/Day Years Used Date Smoking Tobacco: Never Assessed Sex and Gender Information Value Date Recorded Sex Assigned at Not on file 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
--- OUTSIDE RECORDS SUMMARY | 2025-05-12 13:53 | XMS_ITS | Clinical Summary ---
Author Organization [facility] Address [address] 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
--- OUTSIDE RECORDS SUMMARY | 2025-05-12 13:53 | XMS_ITS | Encounter Summary ---
Author Organization [facility] Address [address] [place] [address] Care Team Providers Care Sand Conditioner Name Role Phone Unavailable Primary Care Provider Unavailabl e Encounter Details Date Type Department Care Team (Latest Contact Info) Description 09/27/2002 Outpatient Historical [facility] [place] 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
--- OUTSIDE RECORDS SUMMARY | 2025-05-12 13:53 | XMS_ITS | Encounter Summary ---
Author Organization [facility] Address [address] [place] [address] Care Team Providers Care Peanut Shaker Name Role Phone Unavailable Primary Care Provider Unavailabl e Encounter Details Date Type Department Care Team (Latest Contact Info) Description 10/16/2002 Outpatient Historical [facility] Gen Spec [facility] [place] 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
[2025-05-12 13:56] VITALS: BP 184/104; PULSE 98; RESP 16; TEMP 37.1; O2SAT 95; BMI 21.2
--- NOTE | 2025-05-12 14:01 | W.ED.ABDPA2 ---
HPI - Abdominal Pain General: Chief Complaint: Abdominal Pain Stated Complaint: abd pain, bloody stool Time Seen by Provider: 05/12/25 13:53 History of Present Illness: 85-year-old man with a history of MGUS, hypertension and chronic steroid use who presents to the emergency room with abdominal pain. This has been going on for a few days now. No nausea or vomiting. He says whenever the pain gets worse it hurts around his umbilicus as well. No fevers. He had a bowel movement earlier today. Related Data Home Medications ?Medication ?Instructions ?Recorded ?Confirmed aspirin 325 mg tablet 325 mg PO QPM 01/30/24 05/12/25 ezetimibe 10 mg tablet 10 mg PO DAILY 01/31/24 05/12/25 lisinopril 10 mg tablet 10 mg PO DAILY 01/31/24 05/12/25 metoprolol tartrate 25 mg tablet 25 mg PO QDAY 01/31/24 05/12/25 psyllium husk 3.4 gram/5.4 gram 1 tbsp PO DAILY 05/12/25 05/12/25 oral powder (Metamucil) vit C 250 mg-vit E 90 mg-zinc 40 1 tab PO BID 05/12/25 05/12/25 mg-copper 1 [id number] capsule (PreserVision AREDS-2) Previous Rx's ?Medication ?Instructions ?Recorded prednisone 10 mg tablet 10 mg PO DAILY #90 tabs 02/04/25 cefdinir 300 mg capsule 300 mg PO BID 10 days #20 caps 05/12/25 hydrocodone 5 mg-acetaminophen 325 1 tab PO Q8H PRN pain #14 tabs 05/12/25 mg tablet metronidazole 500 mg tablet 500 mg PO Q8H 10 days #30 tabs 05/12/25 polyethylene glycol 3350 17 17 g PO DAILY #510 grams 05/12/25 gram/dose oral powder (Miralax) prednisone 20 mg tablet 60 mg (3 x 20 mg) PO DAILY #20 tabs 05/12/25 Allergies Allergy/AdvReac Type Severity Reaction Status Date / Time ciprofloxacin (From Cipro) Allergy Unknown Unknown Verified 03/04/25 10:54 codeine Allergy Unknown Unknown Verified 03/04/25 10:54 morphine Allergy Unknown Unknown Verified 03/04/25 10:54 Penicillins Allergy Unknown Unknown Verified 03/04/25 10:54 Review of Systems Narrative: Constitutional symptoms: Negative except as documented in HPI. Skin symptoms: Negative except as documented in HPI. Eye symptoms: Negative except as documented in HPI. ENMT symptoms: Negative except as documented in HPI. Respiratory symptoms: Negative except as documented in HPI. Cardiovascular symptoms: Negative except as documented in HPI. Gastrointestinal symptoms: Negative except as documented in HPI. Genitourinary symptoms: Negative except as documented in HPI. Musculoskeletal symptoms: Negative except as documented in HPI. Neurologic symptoms: Negative except as documented in HPI. Psychiatric symptoms: Negative except as documented in HPI. Endocrine symptoms: Negative except as documented in HPI. PFS ED PFSH: Medical History (Updated 05/12/25 @ 17:08 by Martine Gomes MD) GCA (giant cell arteritis) History of poliomyelitis Chronic steroid use Social History Smoking and tobacco/nicotine status: never used tobacco/nicotine Physical Exam Narrative: EXAM NARRATIVE: General: Alert, no acute distress. Skin: Warm, dry. Head: Normocephalic, atraumatic. Neck: Supple, trachea midline. Eye: Extraocular movements are intact. Ears, nose, mouth and throat: mucosa moist. Cardiovascular: Regular, Normal peripheral perfusion. Respiratory: Lungs are clear to auscultation, respirations are non-labored, breath sounds are equal, Symmetrical chest wall expansion. Gastrointestinal: Soft, moderate tenderness to palpation in the right lower quadrant with some guarding., Non distended Musculoskeletal: Normal ROM, no deformity. Neurological: Alert and oriented, No focal neurological deficit observed. Psychiatric: Cooperative, appropriate mood & affect. Course Vital Signs: Vital signs: Vital Signs Temperature 98.7 F 05/12/25 13:56 Pulse Rate 72 05/12/25 15:30 Respiratory Rate 16 05/12/25 13:56 Blood Pressure 188/98 05/12/25 15:30 Pulse Oximetry 99 05/12/25 15:30 Oxygen Delivery Me thod Room Air 05/12/25 15:30 MDM - Abdominal Pain Medical Decision Making Medical decision making: Differential diagnosis for this patient with right lower quadrant abdominal pain including but not limited to and based on the above HPI, review of systems and physical exam: Ureterolithiasis. Urinary tract infection. Appendicitis. colitis. small bowel obstruction. Crohn's flare. Pancreatitis. Cholelithiasis or cholecystitis. Hepatitis. Diverticulitis. Constipation. ovarian cyst. ovarian torsion Workup: Orders were placed to evaluate differential diagnosis based on the above differential, HPI and exam: Lab Review: Laboratory results were reviewed and interpreted by myself the emergency room physician. No leukocytosis, no anemia, no renal failure. Lipase is negative. Liver enzymes are normal. CT of the abdomen pelvis: Large area in the colon that appears to be colitis. Cannot rule out mass. This was reviewed and interpreted by myself the emergency room physician. I also reviewed the radiology report. I reviewed the patient's medical record Reexamination: Patient remained stable. No increased work of breathing. No altered mental status. No focal motor deficits. Assessment and plan: Colitis ?IV pain meds. IV Zofran. IV Rocephin and Flagyl. Patient has penicillin and Cipro allergic. - Discharged home - Discussed plan with patient. Answered any questions. - Evaluation and treatment of this problem were appropriate in the emergency setting. Lab Data 05/12/25 14:40 05/12/25 14:40 Labs/Radiology: Radiology Impressions Abdomen/Pelvis CT 05/12/25 15:19 IMPRESSION: 1. Marked wall thickening of the cecum, ascending colon and proximal transverse colon having the appearance of edema/inflammatory change. Some surrounding pericolonic stranding. Possibly a small amount of fluid. Findings consistent with those of probable colitis. This should be correlated clinically. In addition there is a masslike density in the cecum with appearance of some enhancement of the overlying mucosa. Underlying mass can not be entirely excluded. 2. Appearance of the mild wall thickening of the urinary bladder may be due to underdistention . Correlate for UTI. 3. Probable previous prostatectomy. 4. Coronary artery calcification. ADDENDUM: 05/12/25 9683 Clinical correlation suggested. Laboratory Results WBC 9.46 10^3/uL (3.29-11.43) 05/12/25 14:40 RBC 4.74 10^6/uL (3.85-5.65) 05/12/25 14:40 Hgb 15.30 g/dL (11.27-16.99) 05/12/25 14:40 Hct 44.5 % (37-53) 05/12/25 14:40 MCV 93.9 fl (82-101) 05/12/25 14:40 MCH 32.3 pg (27-33) 05/12/25 14:40 MCHC 34.4 g/dL (30-55) 05/12/25 14:40 RDW 12.5 % (12.1-15.1) 05/12/25 14:40 Plt Count 225 10^3/cmm (157-399) 05/12/25 14:40 MPV 9.8 fL (7.4-10.4) 05/12/25 14:40 Neut % (Auto) 72.3 % 05/12/25 14:40 Lymph % (Auto) 20.2 % 05/12/25 14:40 [place] % (Auto) 6.8 % 05/12/25 14:40 Eos % (Auto) 0.2 % 05/12/25 14:40 Baso % (Auto) 0.2 % 05/12/25 14:40 Neut # (Auto) 6.84 10^3/uL (1.8-7.7) 05/12/25 14:40 Lymph # (Auto) 1.9 10^3/uL (0.8-4.8) 05/12/25 14:40 [place] # (Auto) 0.6 10^3/uL (0.2-0.9) 05/12/25 14:40 Eos # (Auto) 0.0 10^3/uL (0.0-0.8) 05/12/25 14:40 Baso # (Auto) 0.0 10^3/uL (0.0-0.1) 05/12/25 14:40 Nucleated RBC % (auto) 0 % 05/12/25 14:40 Nucleated RBCs # 0.0 /100WBC 05/12/25 14:40 PT 13.20 SECONDS (12.1-14.9) 05/12/25 14:40 INR 0.94 (0.8-1.2) 05/12/25 14:40 APTT 28.5 SECONDS (23.9-36.7) 05/12/25 14:40 Sodium 136 mmol/L (136-145) 05/12/25 14:40 Potassium 4.2 mmol/L (3.5-5.1) 05/12/25 14:40 Chloride 98 mmol/L (98-107) 05/12/25 14:40 Carbon Dioxide 24 mmol/L (22-29) 05/12/25 14:40 Anion Gap 18.2 (5-19) 05/12/25 14:40 BUN 20 mg/dL (8-23) 05/12/25 14:40 Creatinine 1.0 mg/dL (0.7-1.2) 05/12/25 14:40 GFR Calculation Not Reportable 05/12/25 14:40 Glucose 107 mg/dL (65-115) 05/12/25 14:40 Calculated Osmolality 285 mOsm/kg (285-295) 05/12/25 14:40 Lactic Acid 1.4 mmol/L (0.5-2.2) 05/12/25 14:40 Calcium 9.3 mg/dL (8.5-10.5) 05/12/25 14:40 Total Bilirubin 0.7 mg/dL (0.15-1.2) 05/12/25 14:40 AST 18 U/L (0-40) 05/12/25 14:40 ALT 13 U/L (0-41) 05/12/25 14:40 Alkaline Phosphatase 55 U/L (40-130) 05/12/25 14:40 Total Protein 7.3 g/dL (6.6-8.7) 05/12/25 14:40 Albumin 3.8 g/dL (3.5-5.2) 05/12/25 14:40 Globulin 3.5 g/dL (1.3-4.6) 05/12/25 14:40 Lipase 26 U/L (13-60) 05/12/25 14:40 All radiology interpretation(s) finalized by discharge Discharge Plan Discharge Patient Disposition: Home Clinical Impression: Colitis Condition: Stable Prescriptions: New prednisone 20 mg tablet 60 mg PO DAILY Qty: 20 0RF Rx Instructions: 3 tabs (60 mg) x 3 days. 2 tabs (40 mg) x 3 days. 1 tab (20 mg) x 3 days. 1/2 tab (10 mg) x 4 days metronidazole 500 mg tablet 500 mg PO Q8H 10 Days Qty: 30 0RF cefdinir 300 mg capsule 300 mg PO BID 10 Days Qty: 20 0RF hydrocodone-acetaminophen 5-325 mg tablet 1 tab PO Q8H PRN (Reason: pain) Qty: 14 0RF Rx Instructions: Take 1/2 to 1 tab every 8 hours as needed for pain polyethylene glycol 3350 [Miralax] 17 gram/dose powder 17 g PO DAILY Qty: 510 0RF Rx Instructions: Take 1 scoop daily while taking pain medications. No Action aspirin 325 mg tablet 325 mg PO QPM ezetimibe 10 mg tablet 10 mg PO DAILY lisinopril 10 mg tablet 10 mg PO DAILY metoprolol tartrate 25 mg tablet 25 mg PO QDAY prednisone 10 mg tablet 10 mg PO DAILY Qty: 90 1RF PreserVision AREDS-2 250-90-40-1 mg Capsule 1 tab PO BID Metamucil 3.4 gram/5.4 gram Powder 1 tbsp PO DAILY Rx Instructions: mix into at least 8 oz of water or juice before administering Discharge Orders: Discharge ED (Routine); Ordered 05/12/25 Ordered By: Martine Gomes Referrals: Amy Kessler PA [Primary Care Provider, [facility]] Discharge Diet: Advance as tolerated Discharge Activity: Increase activity as tolerated Patient Instructions: Colitis (ED), Opioid Safety, Pain Management, Patient Portal & [place] Instructions Activity Restrictions/Additional Instructions: You do need to follow-up with your primary provider and possibly have colonoscopy to evaluate the area in your colon that is abnormal. This may be just due to infection but could be a mass or something along those lines. Thank you for choosing [facility] for your healthcare needs today. You have been screened and evaluated and felt safe for discharge. Health conditions do change or evolve sometimes and as such it is important that you follow up with your Primary Doctor to be re checked, 3-5 days is a general good time frame for follow up. You are always welcome to return to the ED for re assessment if your symptoms are worsening or you have new concerns Print Language: Armenian Coding Level of Care Code ED Correspondence Renew Clerk for [place] Brandt
[2025-05-12 14:52] LABS: Hematocrit 44.5 % (37-53); Hemoglobin 15.30 g/dL (11.27-16.99); Mean Corpuscular HGB Conc 34.4 g/dL (30-55); Mean Corpuscular Hemoglobin 32.3 pg (27-33); Mean Corpuscular Volume 93.9 fl (82-101); Nucleated Red Blood Cells % 0 %; Platelet Count 225 10^3/cmm (157-399); Red Blood Count 4.74 10^6/uL (3.85-5.65); White Blood Count 9.46 10^3/uL (3.29-11.43)
[2025-05-12 15:05] LABS: INR 0.94 (0.8-1.2); Prothrombin Time 13.20 SECONDS (12.1-14.9)
[2025-05-12 15:06] LABS: Partial Thromboplastin Time 28.5 SECONDS (23.9-36.7)
[2025-05-12 15:12] LABS: Lactic Sepsis W/Reflex 1.4 mmol/L (0.5-2.2)
[2025-05-12 15:17] LABS: Alanine Aminotransferase 13 U/L (0-41); Albumin Level 3.8 g/dL (3.5-5.2); Alkaline Phosphatase 55 U/L (40-130); Anion Gap 18.2 (5-19); Aspartate Amino Transferase 18 U/L (0-40); Blood Urea Nitrogen 20 mg/dL (8-23); Calcium 9.3 mg/dL (8.5-10.5); Carbon Dioxide 24 mmol/L (22-29); Chloride 98 mmol/L (98-107); Creatinine Clr Calc Pharmacy 51.6765; Globulin 3.5 g/dL (1.3-4.6); Glucose 107 mg/dL (65-115); Lipase 26 U/L (13-60); Osmolality Calculated 285 mOsm/kg (285-295); Potassium 4.2 mmol/L (3.5-5.1); Sodium 136 mmol/L (136-145); Total Protein 7.3 g/dL (6.6-8.7)
--- NOTE | 2025-05-12 15:19 | CTR_ITS ---
PROCEDURE INFORMATION: Exam: CT Abdomen And Pelvis With Contrast Exam date and time: 05/12/2025 3:31 PM Age: 85 years old Clinical indication: Abdominal pain TECHNIQUE: Imaging protocol: Computed tomography of the abdomen and pelvis with contrast. Radiation optimization: All CT scans at this facility use at least one of these dose optimization techniques: automated exposure control; mA and/or kV adjustment per patient size (includes targeted exams where dose is matched to clinical indication); or iterative reconstruction. Contrast material: OMNIPAQUE 350; Contrast volume: 100 ml; Contrast route: INTRAVENOUS (IV); COMPARISON: No relevant prior studies available. RADIATION DOSE METRICS: Total DLP (mGy-cm): 485.76 FINDINGS: Lower chest: Heart size is normal. Coronary artery calcification. Calcified granuloma right middle lobe. No acute appearing parenchymal process. Liver: Normal. No mass. Calcified granulomas. Gallbladder and biliary ducts: Normal. No calcified stones. No ductal dilation. Pancreas: Normal. No ductal dilation. Spleen: Normal. No splenomegaly. Calcified granulomas. Adrenal glands: Normal. No mass. Kidneys and ureters: Normal. No hydronephrosis. Stomach and bowel: Stomach unremarkable. Slight dilatation of the terminal ileum. Small bowel otherwise unremarkable. This may represent some mild stasis. Wall thickening of the cecum, ascending colon and proximal transverse colon. This has a CT number in the 20s and 30s consistent with edema/inflammation. Area of the more marked wall thickening or mass lateral and posterior wall of the cecum. This maybe associated with enhancing mucosa. There is adjacent pericolonic stranding in this area, possibly a small amount of fluid. Remainder of the colon unremarkable except for a few small diverticula in the sigmoid colon. Appendix: Can not be visualized. Intraperitoneal space: Unremarkable. No free air. No significant fluid collection. Vasculature: Mild atherosclerosis. Mild thickening of urinary bladder wall measuring 6 mm. This may be related to underdistention. Correlate for UTI. Surgical clips pelvis probably from previous prostate surgery. No abdominal aortic aneurysm. Lymph nodes: Unremarkable. No enlarged lymph nodes. Urinary bladder: Unremarkable as visualized. Reproductive: Probable previous prostatectomy with surgical clips in the pelvis. Bones/joints: Narrowing of the L5-S1 disc space with vacuum disc phenomenon. Mild adjacent osteophytes. Small osteophytes elsewhere. Mild degenerative changes lower facet joints. Small Schmorl's nodes deformities at several levels. Soft tissues: Small left inguinal hernia containing fat. Small umbilical hernia containing fat. CT/CT abdomen pelvis w con* [id number] IMPRESSION: 1. Marked wall thickening of the cecum, ascending colon and proximal transverse colon having the appearance of edema/inflammatory change. Some surrounding pericolonic stranding. Possibly a small amount of fluid. Findings consistent with those of probable colitis. This should be correlated clinically. In addition there is a masslike density in the cecum with appearance of some enhancement of the overlying mucosa. Underlying mass can not be entirely excluded. 2. Appearance of the mild wall thickening of the urinary bladder may be due to underdistention . Correlate for UTI. 3. Probable previous prostatectomy. 4. Coronary artery calcification.
[2025-05-12] MEDS: ondansetron 2 mg/ML SDV 2 mL 4 MG IVP (15:25)
[2025-05-12] MEDS: HYDROmorphone 0.5 MG/0.5 ML INJ IVP (15:26)
[2025-05-12 15:30] VITALS: BP 188/98; PULSE 72; O2SAT 99
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
[2025-05-12] MEDS: iohexol 350 mg/mL 500 mL Btl (per mL) IV (15:37)
--- NOTE | 2025-05-12 16:27 | PC.PHAR ---
Pt states he hasn't taken any medications since Tuesday05/10/25 and no asa 325mg since 05/09/25.
[2025-05-12] MEDS: cefTRIAXone 1,000 mg SDV 1000 MG IVP (17:58)
[2025-05-12] MEDS: metroNIDAZOLE IV 500 MG/100 ML PREMIX 100 MG IV (17:58)
[2025-05-12] MEDS: HYDROcodone-acetaminophen 5-325 mg Tablet 1 TAB PO (19:24)
[2025-05-12 19:36] VITALS: BP 164/84; PULSE 81; RESP 16; O2SAT 95
== END 2025-05-12 18:33 | disposition home or self-care (01) ==
PROVIDERS: Emergency Provider Emergency Medicine; PCP Physician Assistant
DX: K52.9 Noninfective gastroenteritis and colitis, unspecified (principal); Z79.82 Long term (current) use of aspirin
CPT/HCPCS: 36415; 74177; 80053; 83605; 83690; 85025; 85610; 85730; 87040; 96374; 96375; 99285; J0696; J1171; J2405; J3490; J9999